=== PATIENT | female | born 1965 | race Caucasian/White ===

== ENCOUNTER → 2017-09-11 | Outpatient (CLI) | payer BC, OTHER | LOC: MC.RAD 13:40 | DX: Z12.31 Encounter for screening mammogram for malignant neoplasm of breast (principal) ==

== ENCOUNTER → 2018-11-03 | Outpatient (CLI) | payer OTHER | LOC: MC.RAD 14:40 | DX: Z12.31 Encounter for screening mammogram for malignant neoplasm of breast (principal); Z98.82 Breast implant status ==

== ENCOUNTER → 2019-12-03 | Outpatient (CLI) | payer OTHER | LOC: MC.RAD 14:15 | DX: Z12.31 Encounter for screening mammogram for malignant neoplasm of breast (principal) ==

== ENCOUNTER → 2020-12-05 | Outpatient (CLI) | payer OTHER | LOC: MC.RAD 14:30 | DX: Z12.31 Encounter for screening mammogram for malignant neoplasm of breast (principal) ==

== ENCOUNTER → 2021-12-12 | Outpatient (CLI) | payer OTHER | LOC: MC.RAD 13:54 | DX: Z12.31 Encounter for screening mammogram for malignant neoplasm of breast (principal) ==

== ENCOUNTER → 2022-08-16 | Outpatient (CLI) | payer OTHER | LOC: COL.RAD 13:00 | DX: D72.829 Elevated white blood cell count, unspecified (principal); R16.1 Splenomegaly, not elsewhere classified; R19.7 Diarrhea, unspecified; R10.84 Generalized abdominal pain | CPT/HCPCS: Q9967 ==

== ENCOUNTER → 2022-11-06 | Outpatient (CLI) | payer OTHER | LOC: COL.RAD 08:46 | DX: R10.11 Right upper quadrant pain (principal); R10.13 Epigastric pain; R19.7 Diarrhea, unspecified; R11.2 Nausea with vomiting, unspecified ==

== ENCOUNTER → 2023-01-07 | Outpatient (CLI) | payer OTHER | LOC: MC.RAD 10:50 | DX: Z12.31 Encounter for screening mammogram for malignant neoplasm of breast (principal) ==

== ENCOUNTER → 2024-01-09 | Outpatient (CLI) | payer OTHER | LOC: MC.RAD 08:15 | DX: Z12.31 Encounter for screening mammogram for malignant neoplasm of breast (principal) ==